=== PATIENT | female | born 1985 | race Caucasian/White ===

== ENCOUNTER 2025-04-24 14:07 | Emergency (ER) | payer OTHER, SELFPAY ==
[2025-04-24 14:14] VITALS: BP 116/78; PULSE 75; RESP 16; TEMP 36.8; O2SAT 98
--- NOTE | 2025-04-24 14:24 | XRR_ITS ---
PROCEDURE INFORMATION: Exam: XR Right Tibia and Fibula Exam date and time: 04/24/2025 2:35 PM Age: 39 years old Clinical indication: Metatarsal; Right; RT lower extremity pain after blunt trauma to RT calf area; Additional info: Calf trauma, trouble walking TECHNIQUE: Imaging protocol: Radiologic exam of the right tibia and fibula. Views: 2 views. COMPARISON: No relevant prior studies available. FINDINGS: Bones/joints: Normal. Soft tissues: Normal. XR/XR tibia fibula RT 2V [id number] IMPRESSION: No acute findings.
--- NOTE | 2025-04-24 14:29 | ED_ITS ---
HPI - Extremity Problem General: Chief complaint: Extremity Injury, Lower Stated complaint: right calf pain Time Seen by Provider: 04/24/25 14:08 Source: patient Mode of arrival: wheelchair Limitations: no limitations History of Present Illness: Patient is a 39-year-old female presenting to the emergency department complaining of right calf pain beginning last night while dancing. States that she was kicked very hard in the right calf, has had worsening pain since that now has made difficult for her to walk. Pain specifically worsened with dorsiflexion of the right foot, no history of blood clots. No swelling, bruising, or warmth noted. Vitals have been stable. She took Decadron that she states she had leftover at home and that this did not help. No other concerning symptoms at this time. MD Complaint: extremity pain Onset (ago): hour(s) Pain Consistency: constant Location: right and lower extremity (Calf) Quality: aching and constant Radiation: none Exacerbating factors: range of motion (Dorsiflexion of the right foot) Associated symptoms: Reports no associated symptoms; Deny chest pain, fever(s) or rash Context: other (Direct trauma) Related Data Home Medications ?Medication ?Instructions ?Recorded ?Confirmed diclofenac sodium 75 mg 75 mg PO BID PRN pain/inflam mation 04/24/25 04/24/25 tablet,delayed release Previous Rx's ?Medication ?Instructions ?Recorded cyclobenzaprine 5 mg tablet 5 mg PO Q8H #10 tabs 04/24 Allergies Allergy/AdvReac Type Severity Reaction Status Date / Time No Known Allergies Allergy Verified 04/24/25 14:17 Review of Systems General: Reports: 10 or more systems reviewed and unremarkable except in HPI and below Const: Denies: fever(s) or chills Card: Denies: chest pain Resp: Denies: dyspnea or productive cough GI: Denies: abdominal pain, nausea, vomiting or diarrhea : Denies: flank pain Musc: Reports: extremity pain (Right calf); Denies: neck pain, back pain, extremity swelling, joint pain, joint swelling, joint redness, joint warmth, limited range of motion or muscle weakness Skin/Breast: Denies: rash Neuro: Denies: headache(s), numbness in extremities or weakness in extremities Physical Exam Const: COMMON NORMALS: no acute distress, patient oriented x3, no limitations, healthy appearing, alert and well nourished HENMT: COMMON NORMALS: normocephalic and atraumatic HEAD & SCALP: normocephalic and atraumatic Neck/C-Spine: COMMON NORMALS: full ROM, supple and no meningeal signs Resp: COMMON NORMALS: normal respiratory effort, No use of accessory muscles and clear to auscultation bilaterally AUSCULTATION: clear to auscultation bilaterally Cardio: COMMON NORMALS: regular rate and regular rhythm RATE: regular rate RHYTHM: regular rhythm Extremity: COMMON NORMALS: normal to inspection, full ROM, capillary refill normal, no joint enlargement and no clubbing, cyanosis or edema NARRATIVE EXTREMITY EXAM: Easily reproducible tenderness palpation to the right posterior calf. No unilateral swelling, warmth. No pain in the popliteal space. Distal pulses normal. Pain significantly worsened with dorsiflexion of the right foot. Neuro: COMMON NORMALS: patient oriented x3, moves all extremities, no focal motor deficits and no sensory deficits noted SENSORIUM/ORIENTATION: Yes alert MENINGEAL SIGNS: Yes no meningeal signs Skin: COMMON NORMALS: no rashes or lesions noted GENERAL SKIN EXAM: no rash es or lesions noted Course Vital Signs: Vital signs: Vital Signs Temperature 98.3 F 04/24/25 14:14 Pulse Rate 68 04/24/25 14:30 Respiratory Rate 16 04/24/25 14:14 Blood Pressure 106/71 04/24/25 14:30 Pulse Oximetry 97 04/24/25 14:30 Oxygen Delivery Me thod Room Air 04/24/25 14:30 MDM - Extremity (Nontraumatic) Medical Decision Making This patient presents status post traumatic calf injury last night. On exam there was reproducible tenderness palpation to the right posterior calf, the neurovascular exam was normal. There was no paralysis or pallor, no endorsed paresthesias or weakness. No history of blood clots, and today I have no physical exam findings consistent with a blood clot or compartment syndrome. She was treated with [place], on recheck pain had been improved. Her x-ray was negative for any bony findings, hematoma appreciated potentially both on exam as well as x-ray. At this time I am suspecting this is a contusion, I laid out signs and symptoms to watch for that would warrant return to the emergency department for further evaluation, patient states she has follow-up and I informed her to follow-up in the next 3 days for routine reevaluation and treat conservatively at home. Lab Data Radiology Impressions Tibia/Fibula X-Ray 04/24/25 14:24 IMPRESSION: No acute findings. All radiology interpretation(s) finalized by discharge Discharge Plan Discharge Patient Disposition: Home Clinical Impression: Contusion of right calf Qualifiers: Encounter type: initial encounter Qualified Code(s): S80.11XA - Contusion of right lower leg, initial encounter Condition: Stable Prescriptions: New cyclobenzaprine 5 mg tablet 5 mg PO Q8H Qty: 10 0RF No Action diclofenac sodium 75 mg tablet,delayed release (DR/EC) 75 mg PO BID PRN (Reason: pain/inflammation) Discharge Orders: Discharge ED (Routine); Ordered 04/24/25 Ordered By: Lars Spence Patient Instructions: Contusion in Adults (ED) Activity Restrictions/Additional Instructions: Rest, ice, compression, and elevation. Alternate Motrin and Tylenol. Stretching and range of motion exercises. Please monitor for any pulselessness, paralysis, skin color changes, weakness, a weird sensational changes to your right lower extremity and return to the emergency department as we discussed. Also monitor for any swelling. Follow-up routinely with your regular doctor in the next few days. Print Language: Sammarinese Coding Level of Care Code ED International Student Advisor for [place] Parkinson
[2025-04-24 14:30] VITALS: BP 106/71; PULSE 68; O2SAT 97
[2025-04-24] MEDS: HYDROcodone-acetaminophen 5-325 mg Tablet 1 TAB PO (14:30)
== END 2025-04-24 15:50 | disposition home or self-care (01) ==
PROVIDERS: Emergency Provider Physician Assistant
DX: S80.11XA Contusion of right lower leg, initial encounter (principal); W50.0XXA Accidental hit or strike by another person, initial encounter; Y93.41 Activity, dancing
CPT/HCPCS: 73590; 99283; J9999